=== PATIENT | female | born 1950 | race Caucasian/White ===

== ENCOUNTER → 2019-10-03 09:37 | Outpatient (BNVA) | payer MEDICARE, OTHER, SELFPAY | PROVIDERS: Family Provider Nurse Practitioner; PCP Nurse Practitioner; Visit Provider Nurse Practitioner | DX: I10 Essential (primary) hypertension (principal); E88.81 Metabolic syndrome and other insulin resistance; F41.9 Anxiety disorder, unspecified | CPT/HCPCS: 80053; 80061; 81003; 83036; 85025 ==

== ENCOUNTER 2020-01-08 19:30 | Emergency (ER) | payer MEDICARE, OTHER, SELFPAY ==
[2020-01-08 19:57] VITALS: BP 161/82; PULSE 87; RESP 17; TEMP 36.8; O2SAT 98; BMI 38.9
--- NOTE | 2020-01-08 20:02 | XR_ITS ---
WS: [id number] LEFT ANKLE: 3 VIEW(S) TECHNIQUE: AP, oblique(s) and lateral. HISTORY: fall COMPARISON: None available. Acute nondisplaced fracture involving the medial malleolus. There are small osseous fragments adjacen t to the medial talus which are probably small avulsion fractures in the joint. Well-corticated osseo us density at the distal fibula probably from old fracture. Small joint effusion. Mild degenerative changes at the ankle joint. Extensive soft tissue edema surrounding the ankle. XR/XR ankle LT min 3V* [id number] IMPRESSION: 1. Nondisplaced fracture medial malleolus. 2. Tiny avulsion fractures adjacent to the medial talus are probably avulsion fractures. Site of the avulsion fractures may be from the talus or tibia. 3. Remote appearing fracture distal fibula. 4. Large amount of soft tissue edema surrounding the ankle and foot.
--- NOTE | 2020-01-08 20:02 | XR_ITS ---
WS: [id number] RIGHT ANKLE: 3 VIEW(S) TECHNIQUE: AP, oblique(s) and lateral. HISTORY: fall COMPARISON: None available. Possible avulsion fracture from the distal fibula which is nondisplaced. Otherwise no fracture. No joint effusion or widening of the ankle mortise. No significant degenerative changes at the joint spaces. Mild diffuse soft tissue swelling. XR/XR ankle RT min 3V* [id number] IMPRESSION: Mild diffuse soft tissue swelling. Indeterminate for tiny avulsion from the distal fibula.
--- NOTE | 2020-01-08 20:02 | XR_ITS ---
WS: [id number] RIGHT TIBIA-FIBULA 2 VIEWS HISTORY: fall COMPARISON: None available. No fracture, dislocation or joint abnormality. XR/XR tibia fibula RT 2V [id number] IMPRESSION: Normal RIGHT tibia-fibula.
--- NOTE | 2020-01-08 20:03 | PC.NURSE ---
PATIENT WAS WALKING DOWN STEPS AND FELL AT HER HOME AT 1630 TODAY. PATIENT STATES BILATERAL ANKLE PAIN AND RIGHT LEG PAIN, 04/06
--- NOTE | 2020-01-08 20:04 | ED_ITS ---
HPI - Fall General: Chief Complaint: Fall Stated Complaint: fall Time Seen by Provider: 01/08/20 19:56 Source: patient Mode of arrival: ambulatory Limitations: no limitations History of Present Illness: HPI Narrative: 69-year-old female who is here after a fall. She states she fell down a couple steps and injured both ankles along with right lower leg. Patient is able to ambulate. She states that the pain is sharp in nature and is worse with ambulating. She states her pain is currently 4 out of 10. She denies any other injuries and denies hitting her head. complaint: fall Onset (ago): hour(s) Fall from: standing Place fall occurred: home Loss of consciousness: None Associated symptoms-after fall: Denies abdominal pain, chest pain, headache(s) or neck pain Review of Systems Const: Denies: fever(s), chills, body aches or change in appetite Eyes: Denies: blurry vision or eye discomfort ENMT: Denies: throat pain or dental pain Card: Denies: chest pain Resp: Denies: dyspnea GI: Denies: abdominal pain, nausea, vomiting or diarrhea : Denies: dysuria Musc: Reports: joint pain; Denies: neck pain or back pain Skin/Breast: Denies: rash Neuro: Denies: headache(s) Psych: Denies: depression Joe/Lymph: Denies: easy bruising All/Imm: Denies: urticaria PFSH ED PFSH: Medical History (Updated 01/08/20 @ 20:36 by Meron Haines MD) Anxiety Diverticulosis Gastritis HTN, goal below 130/80 Metabolic syndrome Nonalcoholic fatty liver disease Vitamin D deficiency Surgical History (Updated 10/03/19 @ 09:08 by YOSELYN Lin) H/O knee surgery left 2015 History of bowel resection 2008 for diverticulitis History of section 1973 History of cholecystectomy 1996 History of colonoscopy 07/01/19 History of hernia repair 2011 umbilical History of hysterectomy 1975 Family History (Updated 10/03/19 @ 09:10 by YOSELYN Lin) Father Heart disease Polycythemia vera Mother Diverticula of intestine Social History Smoking and tobacco status: never smoked Second hand smoke exposure: No Smoking risk assessment/counseling performed?: No Alcohol intake: never Desire information about alcohol rehabilitation?: No Counseling given: No Desire information about substance/drug rehabilitation?: No Counseling given: No Adopted: No Caregiver/support person: No Lives independently: Yes Household members: spouse Housing: House Marital status: Number of children: 1 service: No Current occupational status: employed History of recent travel: No Current gender identity: Female Physical Exam Const: COMMON NORMALS: no acute distress, patient oriented x3 and healthy appearing HENMT: COMMON NORMALS: normocephalic and atraumatic HEAD & SCALP: normocephalic and atraumatic Eye: COMMON NORMALS: Equal, round and reactive pupils present and EOMs intact bilaterally PUPIL: Yes Equal, round and reactive pupils present Neck/C-Spine: COMMON NORMALS: full ROM and supple Chest: COMMONS NORMALS: normal inspection of the chest and normal palpation of entire chest wall Resp: COMMON NORMALS: normal respiratory effort, No retractions, No use of accessory muscles and clear to auscultation bilaterally AUSCULTATION: clear to auscultation bilaterally Cardio: COMMON NORMALS: regular rate, regular rhythm and No murmurs present (Cardio) RATE: regular rate RHYTHM: regular rhythm GI: COMMON NORMALS: Normal to inspection, nondistended, normoactive bowel sounds present, Soft to palpation, non-tender and no masses PALPATION: Yes Soft to palpation Extremity: COMMON NORMALS: normal to inspection and full ROM NARRATIVE EXTREMITY EXAM: Slight tenderness over bilateral ankles with no obvious deformity. Neuro: COMMON NORMALS: patient oriented x3, moves all extremities and no focal motor deficits Psych: COMMON NORMALS: mental status grossly normal, Normal thought process present and cooperative THOUGHT PROCESS: Normal thought process present Skin: COMMON NORMALS: no rashes or lesions noted and no wounds GENERAL SKIN EXAM: no rashes or lesions noted Course Vital Signs: Vital signs: Vital Signs Temperature 98.2 F 01/08/20 19:57 Pulse Rate 80 01/08/20 20:12 Respiratory Rate 17 01/08/20 20:16 Blood Pressure 154/108 01/08/20 20:12 Pulse Oximetry 99 01/08/20 20:16 MDM - Fall MDM Narrative: Medical decision making narrative: Patient presents here with a possible left ankle fracture. Difficult to tell if it is acute or chronic in nature. We will place her in a splint and have her use crutches. She is to follow-up with orthopedics in 2 to 4 days and return if worsening. Imaging Data^: xr r ankle: Attestation: I personally reviewed and interpreted this imaging study as follows: My impression: no acute abnormality xr r tib/fib: My impression: no acute abnormality xr l ankle: Attestation: I personally reviewed and interpreted this imaging study as follows: My impression: Acute versus chronic lateral malleolus fracture Discharge Plan Discharge Patient Disposition: Home, Self-Care Clinical Impression: Fall Qualifiers: Encounter type: initial encounter Qualified Code(s): W19.XXXA - Unspecified fall, initial encounter Ankle fracture, right Qualifiers: Encounter type: sequela Fracture type: closed Qualified Code(s): S82.891S - Other fracture of right lower leg, sequela Condition: Stable Prescriptions: No Action albuterol sulfate 2.5 mg /3 mL (0.083 %) solution for nebulization 2.5 mg INHALATION Q4H PRNRF: 0 omeprazole 20 mg capsule,delayed release(DR/EC) 20 mg PO DAILY RF: 0 beclomethasone dipropionate 80 mcg/actuation aerosol INHALATION RF: 0 olmesartan 40 mg tablet 40 mg PO DAILY Qty: 30 RF: 5 furosemide [Lasix] 20 mg tablet 20 mg PO .prn Qty: 30 RF: 5 duloxetine 60 mg capsule,delayed release(DR/EC) 60 mg PO BID Qty: 60 RF: 5 exenatide 10 mcg/dose(250 mcg/mL) 2.4 mL pen injector 10 mcg SUBCUT BID Qty: 2.4 RF: 5 Discharge Orders: Discharge Order (Routine); Ordered 01/08/20 Ordered By: Meron Haines Referrals: Jonas Ramires, ELECTRIC SCOOP OPERATOR-C [Primary Care Provider] - Carloz Chamorro DO [Physician] - 1-3 days Discharge Diet: Advance as tolerated Discharge Activity: Resume usual activity Patient Instructions: Ankle Fracture (ED) Coding Level of Care Code ED Director Instrumentation for Michelle Fwd Exam Comprehensive
[2020-01-08 20:12] VITALS: BP 154/108; PULSE 80; RESP 17; O2SAT 97
[2020-01-08 20:16] VITALS: RESP 17; O2SAT 99
[2020-01-08] MEDS: morphine 4 mg/mL SDV 1 mL IM (20:16)
--- NOTE | 2020-01-08 21:05 | PC.NURSE ---
PATIENT HAS CRUTCHES AT HOME AND REFUSED NEW CRUTCHES. HCP APPROVED FOR NURSE TO CANCEL ORDER.
[2020-01-08 21:06] VITALS: BP 153/92; RESP 16; O2SAT 96
[2020-01-08 21:08] VITALS: BP 136/98; PULSE 87; RESP 14; O2SAT 95
--- NOTE | 2020-01-09 13:26 | DCPLANNER ---
software developer manager had message to schedule a follow up appointment for patient with ortho. software developer manager called the ortho clinic, spoke with Shanice, gave clinic patients information. software developer manager was told that patients information would be printed and reviewed. Clinic will call case therapist and patient with appointment information.
--- NOTE | 2020-01-10 10:14 | DCPLANNER ---
Patient has a follow up appointment scheduled for Friday, January 10, 2020 at 10:[address] Saucedo. Clinic will call patient with appointment information.
--- NOTE | 2020-01-15 15:31 | DCPLANNER ---
Patient did attend appointment scheduled for 01.10.20 with ortho.
== END 2020-01-08 21:12 | disposition home or self-care (01) ==
PROVIDERS: Emergency Provider Emergency Medicine; PCP Nurse Practitioner
DX: S82.55XA Nondisplaced fracture of medial malleolus of left tibia, initial encounter for closed fracture (principal); W10.8XXA Fall (on) (from) other stairs and steps, initial encounter; I10 Essential (primary) hypertension
CPT/HCPCS: 12345; 29515; 73590; 73610; 96372; 99281; 99283; J2270

== ENCOUNTER 2020-01-15 15:23 | Outpatient (CLI) | payer MEDICARE, OTHER, SELFPAY | END 2020-01-15 15:24 | disposition home or self-care (01) | LOC: SPT 15:24 | PROVIDERS: PCP Nurse Practitioner; Visit Provider Orthopaedic Surgery | DX: Z46.89 Encounter for fitting and adjustment of other specified devices (principal); S82.842D Displaced bimalleolar fracture of left lower leg, subsequent encounter for closed fracture with routine healing; X58.XXXD Exposure to other specified factors, subsequent encounter | CPT/HCPCS: 97760; L4361 ==

== ENCOUNTER → 2020-02-10 14:27 | Outpatient (BNVA) | payer MEDICARE, OTHER, SELFPAY | PROVIDERS: PCP Nurse Practitioner; Visit Provider Orthopaedic Surgery | DX: S86.911A Strain of unspecified muscle(s) and tendon(s) at lower leg level, right leg, initial encounter (principal); S82.842A Displaced bimalleolar fracture of left lower leg, initial encounter for closed fracture; X58.XXXA Exposure to other specified factors, initial encounter | CPT/HCPCS: 73590; 73610 ==

== ENCOUNTER → 2020-04-23 15:27 | Outpatient (BNVA) | payer MEDICARE, OTHER, SELFPAY | PROVIDERS: PCP Nurse Practitioner; Visit Provider Nurse Practitioner Family | DX: E88.81 Metabolic syndrome and other insulin resistance (principal); I10 Essential (primary) hypertension; M25.561 Pain in right knee; M17.0 Bilateral primary osteoarthritis of knee | CPT/HCPCS: 80053; 80061; 84443; 85025 ==

== ENCOUNTER → 2020-06-09 10:50 | Outpatient (BNVA) | payer MEDICARE, OTHER, SELFPAY | PROVIDERS: PCP Nurse Practitioner; Visit Provider Nurse Practitioner | DX: E55.9 Vitamin D deficiency, unspecified (principal); M17.0 Bilateral primary osteoarthritis of knee; M17.11 Unilateral primary osteoarthritis, right knee | CPT/HCPCS: 73562; 82306 ==

== ENCOUNTER 2021-04-14 14:44 | Emergency (ER) | payer MEDICARE, OTHER, SELFPAY ==
[2021-04-14 14:50] VITALS: BP 131/77; PULSE 64; RESP 22; TEMP 37.1; O2SAT 98
--- NOTE | 2021-04-14 15:08 | ED_ITS ---
HPI - Extremity Problem General: Chief complaint: Extremity Injury, Lower Stated complaint: RLE Swelling Time Seen by Provider: 04/14/21 15:07 Source: patient Mode of arrival: wheelchair Limitations: no limitations History of Present Illness: HPI Narrative: Patient is a nice 70-year-old female presents to ED today with a complaint of right lower extremity swelling and calf pain. Patient tells me she had a total knee replacement performed in [place] in February. She was then discharged to a [place] [facility] facility. Patient tells me she now is undergoing physical therapy. Patient states while at physical therapy she began complaining of severe left calf pain and the physical therapist noticed significant swelling when compared to her right. Patient states yesterday she felt normal. Patient denies any periods of prolonged inactivity. She is not on any hormonal treatment. No previous DVT/PE. No known injury or trauma to the leg. She does not complain of sarah rtness of breath, difficulty breathing, or chest pain. MD Complaint: extremity pain and extremity swelling Onset (ago): hour(s) Pain Consistency: constant Location: right and lower extremity Relieving factors: nothing Exacerbating factors: range of motion, weight bearing, walking and palpation Associated symptoms: Reports no associated symptoms; Deny chest pain or fever(s) Review of Systems Const: Denies: fever(s), chills, body aches, fatigue or malaise Card: Denies: chest pain, palpitations, lightheadedness, syncope, pre-syncope, dyspnea on exertion or orthopnea Resp: Denies: dyspnea Musc: Reports: extremity pain (R calf) and extremity swelling; Denies: joint pain or joint swelling Neuro: Reports: difficulty walking (secondary to pain); Denies: numbness in extremities, weakness in extremities or sensory changes [facility] ED PFSH: Medical History (Updated 04/14/21 @ 16:13 by STANLEY Prieto) Anxiety Diverticulosis Gastritis HTN, goal below 130/80 Metabolic syndrome Nonalcoholic fatty liver disease Osteoarthritis of knees, bilateral Radiculopathy, thoracic region Vitamin D deficiency Surgical History H/O knee surgery left 2015 History of bowel resection 2009 for diverticulitis History of section 1973 History of cholecystectomy 1996 History of colonoscopy 07/01/19 History of hernia repair 2012 umbilical History of hysterectomy 1976 Family History Father Heart disease Polycythemia vera Mother Diverticula of intestine Social History Smoking and tobacco status: never smoked Second hand smoke exposure: No Smoking risk assessment/counseling performed?: No Alcohol intake: never Desire information about alcohol rehabilitation?: No Counseling given: No Desire information about substance/drug rehabilitation?: No Counseling given: No Adopted: No Caregiver/support person: No Lives independently: Yes Household members: spouse Housing: House Marital status: Number of children: 1 service: No Current occupational status: employed History of recent travel: No Current gender identity: Female Physical Exam Const: COMMON NORMALS: no acute distress, patient oriented x3, no limitations and alert GENERAL APPEARANCE: cooperative NUTRITIONAL APPEARANCE: overweight ORIENTATION/CONSCIOUSNESS: Yes awake, Yes oriented to person, Yes oriented to place and Yes oriented to time Resp: COMMON NORMALS: normal respiratory effort and clear to auscultation bilaterally AUSCULTATION: clear to auscultation bilaterally Cardio: COMMON NORMALS: regular rate and regular rhythm RATE: regular rate RHYTHM: regular rhythm Extremity: GENERAL: Yes normal exam except as noted RIGHT LOWER EXTREMITY: Yes lower leg (calf swelling, TTP; positive Blas's) Right lower leg: Yes neurovascular exam (normal; DP/PT pulses present with brisk cap refill) Neuro: COMMON NORMALS: patient oriented x3, moves all extremities, no focal motor deficits and no sensory deficits noted SENSORIUM/ORIENTATION: Yes alert, Yes oriented to person, Yes oriented to place and Yes oriented to time Skin: COMMON NORMALS: no rashes or lesions noted GENERAL SKIN EXAM: no rashes or lesions noted TRAUMA: no lacerations or abrasions Course Vital Signs: Vital signs: Vital Signs Temperature 98.8 F 04/14/21 14:50 Pulse Rate 64 04/14/21 14:50 Respiratory Rate 22 H 04/14/21 14:50 Blood Pressure 131/77 04/14/21 14:50 Pulse Oximetry 98 04/14/21 14:50 MDM - Extremity (Nontraumatic) MDM Narrative: Medical decision making narrative: Clinically patient did not have much pain directly to her popliteal fossa but she did have significant pain and swelling just distally and into her calf. Ultrasound of her lower extremity shows no DVT but there is a large Raman's cyst present. Patient will be treated with pain meds and steroids. Recommend conservative therapy such as ice and elevation. Weigh tbearing as tolerated. She has an appointment with her orthopedic surgeon on 04/28/2021. Recommend they contact their office to see if he can see sooner if needed. Return to ED precautions given. Lab Data: Labs: Lab Results 04/14/21 Range/Units 15:21 WBC 5.4 (4.0-10.0) 10^3/ uL RBC 3.90 L (4.1-5.3) 10^6/u L Hgb 12.1 (11.5-15.3) g/dL Hct 39.8 (37.0-47.0) % MCV 102.1 H (81-99) fl MCH 31.0 (28.0-34.0) pg MCHC 30.4 (30.0-36.0) g/dL RDW 14.1 (12.1-15.1) % Plt Count 115 L (130-400) 10^3/c mm MPV 12.9 H (7.4-10.4) fL Neut % (Auto) 67.8 % Lymph % (Auto) 19.7 % [place] % (Auto) 8.0 % Eos % (Auto) 3.2 % Baso % (Auto) 1.1 % Neut # (Auto) 3.66 (1.8-7.7) 10^3/u L Lymph # (Auto) 1.1 (0.8-4.8) 10^3/u L [place] # (Auto) 0.4 (0.2-0.9) 10^3/u L Eos # (Auto) 0.2 (0.0-0.8) 10^3/u L Baso # (Auto) 0.1 (0.0-0.1) 10^3/u L Nucleated RBC % (a uto) 0 % Nucleated RBCs # 0.0 /100WBC Imaging Data^: US venous R LE: My impression: Per US tech-no DVT, large Raman's Cyst present Discharge Plan Discharge Patient Disposition: Home Clinical Impression: 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], right knee Condition: Stable Prescriptions: New hydrocodone-acetaminophen 5-325 mg tablet 1 tab PO Q4H PRN (Reason: pain) Qty: 20 RF: 0 Medrol (Refugio) 4 mg tablets,dose pack See Rx Instructions .ROUTE .COMPLEX Qty: 21 RF: 0 No Action albuterol sulfate 2.5 mg /3 mL (0.083 %) solution for nebulization 2.5 mg INHALATION Q4H PRNRF: 0 beclomethasone dipropionate 80 mcg/actuation aerosol INHALATION RF: 0 furosemide [Lasix] 20 mg tablet 20 mg PO .prn Qty: 30 RF: 5 (DME) wheel chair See Rx Instructions .Route .MEDSUPPLY Qty: 1 RF: 0 (DME) Right Knee Brace [id number] See Rx Instructions .Route .MEDSUPPLY Qty: 1 RF: 0 Victoza 3-Refugio 0.6 mg/0.1 mL (18 mg/3 mL) pen injector 1.8 mg SUBCUT Q24H Qty: 9 RF: 2 MediHoney (honey) 100 % paste 1 applic TOPICAL BID Qty: 103 RF: 0 doxepin 10 mg capsule 10 mg PO TID Qty: 90 RF: 0 celecoxib [Celebrex] 100 mg capsule 100 mg PO BID Qty: 60 RF: 2 duloxetine 60 mg capsule,delayed release(DR/EC) 60 mg PO BID Qty: 60 RF: 5 olmesartan 40 mg tablet 40 mg PO DAILY Qty: 30 RF: 5 omeprazole 20 mg capsule,delayed release(DR/EC) 20 mg PO DAILY Qty: 30 RF: 5 (DME) Cam Walker See Rx Instructions .ROUTE .MEDSUPPLY Qty: 1 RF: 0 Discharge Orders: Discharge ED (Routine); Ordered 04/14/21 Ordered By: Malini Ford Referrals: Crystal Gibbs APN [Primary Care Provider] - Patient Instructions: Raman's Cyst, Raman's Cyst (ED), Opioid Safety Activity Restrictions/Additional Instructions: [facility] is committed to fighting the nationwide opiate epidemic. We are providing ALL patients with information regarding opiate safety. If you received opiate pain medication during your stay or if you received a prescription for opiate pain medication-please review this handout. If not, you may disregard. Thank you. As we discussed please keep your appointment with your orthopedic surgeon on April 28. You may use this appointment to follow-up with him in regards to your Raman's cyst. You may also contact their office to see if they can see you sooner. As we discussed we will place you on pain medications and steroids. Weight bearing as tolerated. Use the LISY wrap and continue to ice and elevate the extremity. Coding Level of Care Code ED Installment Loan Collector for Kadeg Fwd Exam Detailed
--- NOTE | 2021-04-14 15:12 | USR_ITS ---
PROCEDURE INFORMATION: Exam: US Duplex Right Lower Extremity Veins, Limited Exam date and time: 04/14/2021 3:12 PM Age: 70 years old Clinical indication: Pain; Leg, lower; Right; Prior surgery; Surgery date: 1-6 months; Additional info: Calf pain/swelling TECHNIQUE: Imaging protocol: Real-time Duplex ultrasound of the Right Lower Extremity with 2-D stewart scale, color Doppler flow and spectral waveform analysis with image documentation. Limited exam was focused on the right lower extremity veins. COMPARISON: CT Chest/Abdomen/Pelvis w IV* 06/11/2019 11:39 AM FINDINGS: Right deep veins: Unremarkable. The common femoral, femoral, proximal profunda femoral, popliteal, posterior tibial and peroneal veins are patent without thrombus. Normal Doppler waveforms. Normal compressibility and/or augmentation response. Right superficial veins: Unremarkable. Saphenofemoral junction is patent without thrombus. Soft tissues: 2.3 x 5.9 x 8.4 cm complex popliteal cyst. US/[place] [id number] IMPRESSION: 1. No sonographic evidence of deep vein thrombosis. 2. 2.3 x 5.9 x 8.4 cm complex popliteal cyst.
[2021-04-14 16:00] LABS: Basophils # 0.1 10^3/uL (0.0-0.1); Basophils % 1.1 %; Eosinophils # 0.2 10^3/uL (0.0-0.8); Eosinophils % 3.2 %; Hematocrit 39.8 % (37.0-47.0); Hemoglobin 12.1 g/dL (11.5-15.3); Lymphocytes # 1.1 10^3/uL (0.8-4.8); Lymphocytes % 19.7 %; Mean Corpuscular HGB Conc 30.4 g/dL (30.0-36.0); Mean Corpuscular Volume 102.1 fl (81-99); Mean Platelet Volume 12.9 fL (7.4-10.4); Monocytes # 0.4 10^3/uL (0.2-0.9); Neutrophils # 3.66 10^3/uL (1.8-7.7); Neutrophils % 67.8 %; Nucleated Red Blood Cells % 0 %; Platelet Count 115 10^3/cmm (130-400); Red Cell Distribution Width 14.1 % (12.1-15.1); White Blood Count 5.4 10^3/uL (4.0-10.0)
[2021-04-14 16:35] VITALS: BP 129/76; PULSE 64; RESP 18; TEMP 37.2; O2SAT 97
[2021-04-14 16:36] VITALS: BP 129/76; PULSE 64; RESP 18; TEMP 37.2; O2SAT 97
[2021-04-14 16:43] LABS: Alanine Aminotransferase 28 U/L (0-33); Albumin Level 3.2 g/dL (3.5-5.2); Alkaline Phosphatase 167 IU/L (35-105); Anion Gap 10.7 (5-19); Aspartate Amino Transferase 61 U/L (0-32); Blood Urea Nitrogen 18 mg/dL (8-23); Calcium 8.8 mg/dL (8.5-10.5); Carbon Dioxide 28 mmol/L (22-29); Chloride 105 mmol/L (98-107); Globulin 3.2 g/dL (1.3-4.6); Glomerular Filtration Rate 122.7 mL/min (90-130); Glucose 112 mg/dL (65-115); Osmolality Calculated 293 mOsm/kg (285-295); Potassium 3.7 mmol/L (3.5-5.1); Sodium 140 mmol/L (136-145); Total Bilirubin 1.2 mg/dL (0.15-1.2); Total Protein 6.4 g/dL (6.6-8.7)
[2021-04-14 16:45] LABS: INR 1.31 (0.8-1.2)
[2021-04-14 16:46] LABS: Partial Thromboplastin Time 26.1 SECONDS (23.9-36.7)
== END 2021-04-14 16:38 | disposition home or self-care (01) ==
PROVIDERS: Emergency Provider Physician Assistant; PCP Nurse Practitioner Family
DX: M71.21 Synovial cyst of popliteal space [Baker], right knee (principal); I10 Essential (primary) hypertension; M79.89 Other specified soft tissue disorders
CPT/HCPCS: 80053; 85025; 85610; 85730; 93971; 99283

== ENCOUNTER 2021-12-06 14:37 | Outpatient (CLI) | payer MEDICARE, OTHER, SELFPAY ==
--- NOTE | 2021-12-06 14:52 | USCV_ITS ---
Alondra Hardy Age: 71 Gender: F : 1950 Exam Date: 12/06/2021 15:08 Ordering Phys: Crystal Gibbs APN Technologist: Deedee Siegel [place] [facility] [place]: PAIN AND SWELLING RT AND LT LEGS HISTORY: Pain and swelling Rt and Lt legs PROCEDURES: The venous duplex Doppler examination of both lower extremities was performed in the standard fashion. The following venous structures were evaluated: common femoral vein, profunda vein, proximal portion of the greater saphenous vein, superficial femoral vein, and the popliteal vein. In addition, the posterior tibial and peroneal trunk were evaluated. Serial compression, augmentation maneuvers, and spectral Doppler flow evaluation were performed. FINDINGS: Normal 2-D Doppler and augmentation and compressibility throughout the lower extremity venous structures. Additional imaging through the proximal calf veins also reveals no thrombus. Limited evaluation of the greater saphenous vein is patent with no thrombus. There is subcutaneous bilateral lower extremity edema noted. CONCLUSIONS No DVT bilateral lower extremities. Dr. No Samaniego DO (Electronically Signed) Final Date: 06 December 2021 16:28 S
== END 2021-12-06 14:38 | disposition home or self-care (01) ==
LOC: RAD 14:42
PROVIDERS: PCP Nurse Practitioner Family; Visit Provider Nurse Practitioner Family
DX: M79.605 Pain in left leg (principal); M79.604 Pain in right leg; R60.0 Localized edema
CPT/HCPCS: 93970

== ENCOUNTER 2021-12-08 08:59 | Outpatient (CLI) | payer MEDICARE, OTHER, SELFPAY ==
--- NOTE | 2021-12-08 09:12 | USCV_ITS ---
Alondra Hardy Age: 71 Gender: F : 1950 Exam Date: 12/08/2021 09:54 Ordering Phys: Crystal Gibbs APN Technologist: Exam Location: [facility] [place] Indication: pad Risk Factors: none Previous Vascular Surgery: RIGHT LEFT BP: 126.0 / 88.00 BP: 130.0/ 71.00 0 0 Waveform Velocity (cm/s) Velocity (cm/s) Waveform Triphasic 170.9 Iliac Prox 142.5 Triphasic Triphasic 184.7 Iliac Mid 146.8 Triphasic Triphasic 160.5 Iliac Distal 131.0 Triphasic Triphasic 112.2 DIGITAL ASSET SPECIALIST 168.5 Triphasic Triphasic 103.6 SFA Prox 144.0 Biphasic Triphasic 192.2 SFA Mid 158.7 Biphasic Triphasic 174.9 SFA Dist 101.0 Biphasic Triphasic 126.8 POP 55.2 Triphasic Biphasic 142.2 SCRAP CUTTER 72.0 Biphasic Biphasic 132.0 DPA 78.3 Biphasic PRISCILLA 1.4 1.3 FINDINGS Normal resting ABIs bilaterally-1.3 on the right and 1.4 on the left Near normal arterial Doppler waveforms bilaterally Near normal Doppler flow velocities Mild diffuse plaques in the iliac and femoral arteries bilaterally CONCLUSIONS No evidence of any significant arterial obstruction, based on the above findings. Dr Felisa Stock MD [facility] (Electronically Signed) Final Date: 08 December 2021 13:44 S
== END 2021-12-08 09:00 | disposition home or self-care (01) ==
LOC: RAD 08:59
PROVIDERS: PCP Nurse Practitioner Family; Visit Provider Nurse Practitioner Family
DX: M79.605 Pain in left leg (principal); M79.604 Pain in right leg; R60.0 Localized edema
CPT/HCPCS: 93925

== ENCOUNTER → 2022-02-15 14:31 | Outpatient (BNVA) | payer MEDICARE, OTHER, SELFPAY | PROVIDERS: PCP Nurse Practitioner Family; Visit Provider Internal Medicine | DX: I10 Essential (primary) hypertension (principal); R60.0 Localized edema; R06.02 Shortness of breath | CPT/HCPCS: 80053; 93005; 99203; 99204 ==

== ENCOUNTER 2022-02-17 11:14 | Outpatient (CLI) | payer MEDICARE, OTHER, SELFPAY ==
--- NOTE | 2022-02-17 11:00 | USCV_ITS ---
Alondra Hardy Age: 71 Gender: F : 1950 Exam Date: 02/17/2022 11:41 Ordering Phys: Sushil Reddy M.D ([email or web address]) Technologist: Daniel Gomez Exam Location: [facility] – [place] Indication: SOB BP: 118 / 64 HR: 79 Rhythm: Sinus Technical Quality: Adequate MEASUREMENTS (Male / Female) Normal Values 2D ECHO LV Diastolic Diameter PLAX 3.8 cm 4.2 - 5.9 / 3.9 - 5.3 cm LV Systolic Diameter PLAX 2.3 cm IVS Diastolic Thickness 1.0 cm 0.6 - 1.0 / 0.6 - 0.9 cm IVS Systolic Thickness 1.2 cm LVPW Diastolic Thickness 1.6 cm 0.6 - 1.0 / 0.6 - 0.9 cm LVPW Systolic Thickness 1.7 cm LVOT Diameter 2.0 cm LV Ejection Fraction 2D Teich 71.8 % LV Ejection Fraction MOD 2C 62.5 % LV Ejection Fraction 2C AL 62.8 % LA Diameter 3.3 cm LA Width 4.3 cm LA Height 4.8 cm RA Width 3.4 cm RA Height 4.1 cm Aorta at Sinotubular Diameter 2.1 cm IVC Diameter 1.8 cm M-MODE Aortic Annulus Diameter 2.6 cm LA Ao Ratio MM 1.2 MV E Point Septal Separation 0.4 cm DOPPLER AV Peak Velocity 227.5 cm/s LVOT Peak Velocity 133.0 cm/s AV Area Cont Eq vti 2.2 cm squared AV Area Cont Eq pk 1.9 cm squared MV Peak Velocity 160.0 cm/s MV Area PHT 4.6 cm squared Mitral E to A Ratio 1.9 MV E' Velocity 91.0 cm/s Mitral E to MV E' Ratio 10.8 Mitral E to LV E' Lateral Ratio 8.1 Mitral E to LV E' Septal Ratio 16.4 TR Peak Velocity 401.5 cm/s TR Peak Gradient 64.5 mmHg TR Mean Velocity 313.1 cm/s TR Mean Gradient 41.9 mmHg TR Velocity Time Integral 123.1 cm Right Atrial Pressure 3.0 mmHg Pulmonary Artery Systolic Pressu 67.5 mmHg RV Acceleration Time 0.2 s RV Ejection Time 0.3 s RV AcT/ET 0.5 FINDINGS Left Ventricle Normal left ventricular size. LV systolic function is normal with EF of 60-65%. No regional wall motion abnormalities. Diastolic function is normal Right Ventricle The right ventricle is normal in size and function. Right Atrium The right atrium is normal in size. Left Atrium The left atrium is normal in size. Mitral Valve Structurally normal mitral valve without significant stenosis or prolapse. There is mild mitral regurgitation. Aortic Valve Structurally normal aortic valve. Mild aortic stenosis with mean gradient across the aortic valve is 10.5mmHg and aortic valve is 2cm2. There is no aortic regurgitation. Tricuspid Valve Structurally normal tricuspid valve without significant stenosis. Mild to moderate tricuspid regurgitation. RVSP is 65- 70mmHg. This is consistent with severe pulmonary hypertension Pulmonic Valve Grossly normal Pericardium Normal pericardium without effusion. Aorta Normal ascending aorta dimension. IVC CONCLUSIONS LV systolic function is normal with EF of 60-65%. Diastolic function is normal Mild mitral regurgitation Mild aortic stenosis with mean gradient across the aortic valve of 10.5mmHg. Mild to moderate tricuspid regurgitation. RVSP is 65-70mmHg. This is consistent with severe pulmonary hypertension No comparison studies are available Sushil Reddy MD (Electronically Signed) Final Date: 22 February 2022 23:57 S
== END 2022-02-17 11:15 | disposition home or self-care (01) ==
LOC: RAD 11:18
PROVIDERS: PCP Nurse Practitioner Family; Visit Provider Internal Medicine
DX: R06.02 Shortness of breath (principal)
CPT/HCPCS: 93306

== ENCOUNTER → 2022-02-24 13:21 | Outpatient (BNVA) | payer MEDICARE, OTHER, SELFPAY | PROVIDERS: PCP Nurse Practitioner Family; Visit Provider Internal Medicine | DX: R60.0 Localized edema (principal); I10 Essential (primary) hypertension | CPT/HCPCS: 80048; 83880 ==